=== PATIENT | male | born 1965 | race Caucasian/White ===

== ENCOUNTER 2024-04-18 07:01 | Day surgery (SDC) | payer OTHER ==
[2024-04-14 12:22] VITALS: BP 140/90
[2024-04-14 12:49] LABS: HEMATOCRIT 42.1 % (39.0-48.0); HEMOGLOBIN 14.5 g/dL (13-16.00); MEAN CELL VOLUME 86.6 fL (80.0-100.00); MEAN CORPUSCULAR HEMOGLOBIN 29.9 pg (27.00-32.0); MEAN CORPUSCULAR HGB CONC 34.5 g/dl (32.0-36.0); PLATELET COUNT 235 K/uL (150-450); RED BLOOD COUNT 4.86 M/uL (4.00-6.00); RED CELL DISTRIBUTION WIDTH 13.8 % (11.5-14.5)
[2024-04-14 12:58] LABS: URINE APPEARANCE Clear; URINE BILIRRUBIN Negative (NEGATIVE); URINE BLOOD Negative; URINE COLOR Yellow; URINE GLUCOSE Negative (NEGATIVE); URINE KETONE Negative (NEGATIVE); URINE LEUKOCYTE Negative; URINE NITRATE Negative; URINE PROTEIN Negative (NEGATIVE); URINE UROBILINOGEN 0.2 E.U./dl
[2024-04-14 13:01] LABS: URINE EPITHELIAL CELLS 2.4 uL (0.0-38.8); URINE WBC 5.7 uL (0.0-23.2)
[2024-04-14 13:12] LABS: PARTIAL THROMBOPLASTIN TIME 29.5 SECONDS (22.0-34.0); PROTHROMBIN TIME 10.9 SECONDS (9.0-11.5); URINE BACTERIA 2.5 uL (0.0-1933); URINE CAST 0.15 uL (0.0-1.40); URINE RBC 1.9 uL (0.0-20.8)
[2024-04-14 13:55] LABS: BILIRUBIN TOTAL 0.8 mg/dL (0.3-1.2); CALCIUM 9.4 mg/dL (8.5-10.1); CREATININE SERUM 0.87 mg/dL (0.70-1.30); GFR 90.44; GLOBULINA 3.7 G/DL (2.4-3.5); POTASSIUM 4.66 mEq/L (3.5-5.1); TOTAL PROTEIN 7.7 gm/dL (6.4-8.2)
[~2024-04-18] VITALS: Ht 172.7 cm; Wt 77.1 kg
[~2024-04-18 07:01] MED LIST: AMBIEN5 MG PO; CLONAZEPAM0.5 MG PO; WELLBUTRIN SR100 MG PO
[2024-04-18] MEDS ORDERED: MORPHINE SULFATE 4 MG/ML VIAL IV ONE (21:25)
== END 2024-04-18 22:30 | disposition home or self-care (01) ==
LOC: CIR.AMB 07:01
PROVIDERS: ATTEND Orthopaedic Surgery Hand Surgery
DX: S63.014A Dislocation of distal radioulnar joint of right wrist, initial encounter (principal); F41.8 Other specified anxiety disorders